=== PATIENT | female | born 1965 | race Caucasian/White ===

== ENCOUNTER 2017-03-03 08:27 | Emergency (ER) | payer OTHER ==
[~2017-03-03] VITALS: Ht 175.3 cm; Wt 100.8 kg
[2017-03-03] MEDS ORDERED: ALBUTEROL/IPRATROPIUM 2.5MG/0.5MG, 3 ML ONE (09:29)
[2017-03-03] MEDS ORDERED: ALBUTEROL/IPRATROPIUM 2.5MG/0.5MG, 3 ML NPPB ONE (09:30)
[2017-03-03 11:15] VITALS: BP 127/83
== END 2017-03-03 11:41 | disposition home or self-care (01) ==
LOC: ED 09:40
DX: J45.30 Mild persistent asthma, uncomplicated (principal); J45.20 Mild intermittent asthma, uncomplicated
CPT/HCPCS: 71010; 93005; 94640; 99284; J7512; J7620

== ENCOUNTER → 2018-06-07 | Outpatient (CLI) | payer OTHER | END | disposition home or self-care (01) | LOC: CFH 10:52 | PROVIDERS: ATTEND Family Medicine | DX: Z12.31 Encounter for screening mammogram for malignant neoplasm of breast (principal) | CPT/HCPCS: 77063; 77067 ==